=== PATIENT | female | born 1960 | race Two or more races ===

== ENCOUNTER 2017-08-04 07:36 | Day surgery (SDC) | payer OTHER ==
[~2017-08-04 07:36] MED LIST: LIPITO PO; LISINOPRIL-HCT1 EACH PO; METFORMIN HCL500 M2 PO; SYNTHROID88 MCG PO
[2017-08-04] MEDS ORDERED: NAPROXEN SODIU550 M1 PO (11:48)
== END 2017-08-04 16:20 | disposition home or self-care (01) ==
LOC: CIR.AMB 07:36
DX: N84.1 Polyp of cervix uteri (principal); N84.0 Polyp of corpus uteri; N72 Inflammatory disease of cervix uteri